=== PATIENT | male | born 1975 | race Caucasian/White ===

== ENCOUNTER 2020-08-14 02:01 | Outpatient (CLI) | payer OTHER, SELFPAY ==
[2020-08-14 18:12] LABS: SARS-CoV-2 RNA PCR Negative
== END 2020-08-14 02:02 | disposition home or self-care (01) ==
LOC: ANHCOVIDDT 02:01
PROVIDERS: Family Provider Family Medicine; PCP Physician Assistant; Visit Provider Internal Medicine Gastroenterology
DX: Z01.812 Encounter for preprocedural laboratory examination (principal); Z20.822 Contact with and (suspected) exposure to COVID-19
CPT/HCPCS: C9803; U0003; U0005

== ENCOUNTER 2020-08-17 01:38 | Day surgery (SDC) | payer OTHER, SELFPAY ==
[2020-08-08 14:14] VITALS: BMI 32.1
--- NOTE | 2020-08-15 13:35 | WPDANESEPPF ---
Anes - Initial Pre Proc Eval Procedure: Operation Date: 08/17/20 10:30 Proposed Procedures p Esophagogastroduodenoscopy & Colonoscopy - Varun Boyd MD Date/Time: 08/15/20 13:35 Surgeon: Varun Boyd MD Pre Op Diagnosis: GERD, Melena Patient Data Age: 45 Gender: M Height: 1.79 m Weight: 103 kg Allergies Allergy/AdvReac Type Severity Reaction Status Date / Time diphenhydramine Allergy Mild Other Verified 08/17/20 09:44 Home Medications Medication Instructions Recorded Confirmed Type lactobacillus combination no.8 3 3,000 mmu cells PO DAILY 07/31/20 08/08/20 History billion cell capsule multivitamin 1 tablet PO DAILY 07/31/20 08/08/20 History omeprazole 40 mg capsule,delayed 40 mg PO DAILY #90 cap 07/31/20 08/08/20 Rx release psyllium husk 0.4 gram capsule 0.4 g PO DAILY 07/31/20 08/08/20 History sertraline 50 mg tablet 50 mg PO DAILY #90 tablet 07/31/20 08/08/20 Rx Patient hx anesthesia problems: none Family hx anesthesia problems: none [facility] Past Medical History Medical History (Updated 08/17/20 @ 10:03 by Varun Boyd MD) GERD (gastroesophageal reflux disease) Pneumonia Family History Family History Father No problems noted. Mother No problems noted. Social History Social History Smoking status: Never smoker Alcohol intake: current Drinks per week: 12 Substance use: never Substance use type: does not use Living arrangements: with family Spiritual care concerns: No Anes - Eval Final PreProcedure Day of Procedure 08/15/20 13:35 Patient weight: obese Heart: regular rate and rhythm Lungs: clear to auscultation and normal air movement Airway: Mallampati scale class II Neurological: alert and oriented Last oral intake: >/= 8 hours ASA classification: II Emergent: no Anesthetic plan: proceed Anesthesia type and monitoring: general GIVS and standard monitoring Informed Consent: The patient's anesthetic plan and its attendant risks and benefits were discussed with the patient/family/POA. Questions were solicited and answers provided to the satisfaction of the patient/family/POA.
[2020-08-17 09:46] VITALS: BP 129/69; PULSE 50; RESP 18; TEMP 36.4; O2SAT 99
[2020-08-17] MEDS: LACTATED RINGERS 1,000 ML 150 ML IV CONT (09:47)
--- NOTE | 2020-08-17 10:01 | WPDGICN ---
Assessment and Plan Assessment and plan (1) Chronic GERD: Code(s): K21.9 - Gastro-esophageal reflux disease without esophagitis Status: Acute Assessment and Plan: Patient has chronic dyspepsia and heartburn. Poorly responsive to Prilosec 20 mg p.o. once daily. Plan is for EGD of the assess more thoroughly. Suspect he may need a higher or change in the dose of this medication. Further recommendations will be given after endoscopy. (2) Rectal bleeding: Code(s): K62.5 - Hemorrhage of anus and rectum Status: Acute Assessment and Plan: Patient reports a lifelong history of occasional rectal bleeding as well as rather diffuse abdominal discomfort and irregular bowel habits. Sometimes 8-10 bowel movements a day. Plan is to assess more thoroughly with colonoscopy. This report follow separately GI Consult Note Consult date/time: 08/17/20 10:01 HPI: Sin Martin is a 45 year old male Seen in evaluation at the request of Dr Hernandez. patient presents for GI endoscopy. Patient reports a lifelong history of stomach and intestinal problems. He has had intermittent diarrhea. Occasional bright red blood per rectum. Rather diffuse abdominal pain. Occasional heartburn. Last year he was started on omeprazole 20 mg p.o. daily which helped to some degree. But has failed to alleviate his symptoms. Ho dose was recently have suggested but not yet implemented. Patient has tried fiber supplements as well as probiotics with no immediate change in his irregular bowel habits. Patient's family history is noncontributory. Patient denies any weight loss. He denies any black stools. Review of Systems Review of Systems: All systems reviewed & are unremarkable except as noted in HPI and below [facility] Past Medical History Medical History (Updated 08/17/20 @ 10:03 by Varun Boyd MD) GERD (gastroesophageal reflux disease) Pneumonia Family History Family History Father No problems noted. Mother No problems noted. Social History Social History Smoking status: Never smoker Alcohol intake: current Drinks per week: 12 Substance use: never Substance use type: does not use Living arrangements: with family Spiritual care concerns: No Meds Home Medications and Allergies Home Medications Medication Instructions Recorded Confirmed Type lactobacillus combination no.8 3 3,000 mmu cells PO DAILY 07/31/20 08/08/20 History billion cell capsule multivitamin 1 tablet PO DAILY 07/31/20 08/08/20 History omeprazole 40 mg capsule,delayed 40 mg PO DAILY #90 cap 07/31/20 08/08/20 Rx release psyllium husk 0.4 gram capsule 0.4 g PO DAILY 07/31/20 08/08/20 History sertraline 50 mg tablet 50 mg PO DAILY #90 tablet 07/31/20 08/08/20 Rx Allergies Allergy/AdvReac Type Severity Reaction Status Date / Time diphenhydramine Allergy Mild Other Verified 08/17/20 09:44 Vital Signs Vital Signs - 24 hr 08/17/20 09:46 Temperature 97.5 F L Pulse Rate 50 L Respiratory Rate 18 Blood Pressure 129/69 Pulse Oximetry 99 Exam Narrative: Exam Narrative: Physical exam reveals patient to be alert. Vital signs stable. HEENT exam unremarkable. Patient is anicteric. Lungs are clear to auscultation and percussion. Heart is without murmur or extra sounds. Abdominal exam bowel sounds are present soft nontender with no organomegaly. Digital external rectal exam normal.
[2020-08-17] MEDS: BENZOCAINE (*SP) 60 ML SPRAY CAN (HURRICAINE) 1 SPRAY MUCOUS MEM (10:43)
[2020-08-17] MEDS: SIMETHICONE ORAL SUSPENSION 20 MG/0.3 ML 30 ML BOTTLE 0.6 ML IRRIGATION (10:57)
[2020-08-17 11:08] VITALS: BP 102/56; PULSE 47; RESP 15; O2SAT 99
[2020-08-17 11:18] VITALS: BP 105/64; PULSE 49; RESP 19; O2SAT 100
[2020-08-17 11:28] VITALS: BP 120/69; PULSE 45; RESP 18; O2SAT 100
== END 2020-08-17 11:45 | disposition home or self-care (01) ==
PROVIDERS: Family Provider Family Medicine; PCP Physician Assistant; Visit Provider Internal Medicine Gastroenterology
PROC: 0DJ08ZZ Inspection of Upper Intestinal Tract, Via Natural or Artificial Opening Endoscopic (ICD-10-PCS; CPT 43235; principal; 2020-08-17 10:30)
DX: K21.9 Gastro-esophageal reflux disease without esophagitis (principal); K92.1 Melena; E66.9 Obesity, unspecified; Z68.32 Body mass index [BMI] 32.0-32.9, adult; R12 Heartburn; K64.8 Other hemorrhoids
CPT/HCPCS: 43239; 45378; 87081; C9803; J2001; J2704; J7120; U0003; U0005

== ENCOUNTER → 2023-04-28 15:21 | Outpatient (REF) | payer OTHER, SELFPAY | LOC: ANHLAB 15:21 | PROVIDERS: PCP Physician Assistant; Visit Provider Plastic Surgery | DX: D17.0 Benign lipomatous neoplasm of skin and subcutaneous tissue of head, face and neck (principal); R22.1 Localized swelling, mass and lump, neck | CPT/HCPCS: 88305 ==